=== PATIENT | male | born 1955 | race Caucasian/White ===

== ENCOUNTER 2017-08-28 16:39 | Emergency (ER) | payer BC ==
[~2017-08-28] VITALS: Ht 182.9 cm; Wt 138.1 kg
[2017-08-28 16:55] VITALS: TEMP 37; Ht 182.9 cm; Wt 138.1 kg
[2017-08-28] MEDS ORDERED: XYLOCAINE 1%/SOD BICARB 20 ML VIAL INFIL ONE (17:15)
[2017-08-28] MEDS ORDERED: PROB1TAB16 PO (17:20)
[2017-08-28] MEDS ORDERED: ANTIHYPERTENSIVE PO (17:20)
[2017-08-28] MEDS ORDERED: ASPI81TA28 PO (17:20)
[2017-08-28] MEDS ORDERED: LEVO100T PO (17:20)
[2017-08-28] MEDS ORDERED: PRAS1TAB6 PO (17:20)
[2017-08-28] MEDS ORDERED: MULT-221 PO (17:20)
[2017-08-28] MEDS ORDERED: CHOL1000 PO (17:20)
--- NOTE | 2017-08-28 17:51 | EMERGENCY ROOM VISIT NOTE ---
ED Visit Note First contact with patient: 16:58 CHIEF COMPLAINT: Right fifth toe laceration HISTORY OF PRESENT ILLNESS: Patient is a 61-year-old female who presents the emergency department for evaluation of bleeding from his right fifth toe. He accidentally cut himself while trying to clip his toenails. He is on Effient and a baby aspirin daily status post cardiac stenting. He states that despite applying prolonged pressure and multiple Band-Aid, the area is still bleeding. He rates his discomfort a 1/10. REVIEW OF SYSTEMS: Review of systems as per HPI. All other systems reviewed were negative. At least 6 systems reviewed. PMH: Electronic medical records are reviewed and summarized as above/below. See Problem List. Tetanus is up-to-date. SOCIAL HISTORY: Patient lives at home with his . He is employed. Nonsmoker. PHYSICAL EXAM: Vital Signs: Reviewed Nurse's notes. There is a 1 cm long C- shaped flap laceration on the tip of the left fifth toe. The edges are gaping apart. There is no foreign material in the wound and it looks clean. There is no active bleeding. No deep structures such as tendons or nerves are seen in the base of the wound. EMERGENCY DEPARTMENT COURSE: Using sterile technique, the wound was irrigated copiously with saline and then cleaned with Betadine. Using 1% lidocaine anesthesia, the laceration was repaired with 3, 5-0 nylon sutures. The patient was educated that part of the flap may be too thin to be viable, but removing the entire flap with these a very large defect to granulate over, and given his blood thinning medications, it was felt that it was better to use the flap as an anatomic Band-Aid, rather than remove it. He has a podiatry appointment in 4 days, they can recheck the wound at that time. Suture removal in 10-12 days. The patient expressed understanding of this and was agreeable. Medication reconciliation: I attest that I have personally reviewed the patient' s current medication list. Blood pressure screening: Patient was found to have a slightly elevated blood pressure due to circumstances. I do not believe that the patient requires hypertension monitoring. Problem List Medical Problems: (1) CAD (coronary artery disease) Status: Chronic (2) Hypertension Status: Chronic Surgical Problems: (1) History of heart artery stent Status: Resolved (2) Hx of cholecystectomy Status: Resolved Current/Historical Medications Scheduled Aspirin (Aspirin Ec), 81 MG PO DAILY Cholecalciferol (Vitamin D3), 1 TAB PO DAILY Levothyroxine Sodium (Synthroid), 100 MCG PO DAILY Multiple Vitamins W/ Minerals (Multi For Him 50+), 1 TAB PO DAILY Prasugrel Hcl (Effient), 10 MG PO DAILY Probiotic Product (Probiotic), 1 TAB PO DAILY [Antihypertensive], 1 TAB PO DAILY Allergies Coded Allergies: No Known Allergies (Unverified , 08/28/17) Vital Signs Date Time Temp Pulse Resp B/P (MAP) Pulse Ox O2 Delivery O2 Flow Rate FiO2 08/28/17 17:55 59 16 129/74 95 Room Air 08/28/17 16:55 37.0 63 18 155/82 96 Room Air Medications Administered Medications (Trade) Dose Ordered Sig/Maxim Route Start Time Stop Time Status Last Admin Dose Admin Lidocaine HCl (Buffered Lidocaine 1% Inj) 20 ml ONE ONCE INFIL 08/28/17 17:15 08/28/17 17:16 DC 08/28/17 17:31 20 ML Departure Information Impression Primary Impression: Toe laceration Referrals No Doctor, Assigned (PCP) Patient Instructions [facility] Additional Instructions Keep wound clean and dry. Do not allow any crusting or dried blood to accumulate on sutures. Clean gently with mild soap and water. Use an antibiotic ointment for 3-4 days, then let wound dry. Suture removal in 10-12 days. Return sooner for any signs of infection (increasing redness, swelling, drainage). Ice and elevate for swelling and pain. Ibuprofen 600 mg and Tylenol 1000 mg every 6 hrs for pain.
[2017-08-28 17:55] VITALS: BP 129/74; PULSE 59; O2SAT 95
== END 2017-08-28 18:09 | disposition home or self-care (01) ==
LOC: C.EDB 16:42 → C.EDD 18:09
DX: S91.114A Laceration without foreign body of right lesser toe(s) without damage to nail, initial encounter (principal); W45.8XXA Other foreign body or object entering through skin, initial encounter; Y93.E8 Activity, other personal hygiene; I25.10 Atherosclerotic heart disease of native coronary artery without angina pectoris; I10 Essential (primary) hypertension; Z79.82 Long term (current) use of aspirin; Z79.01 Long term (current) use of anticoagulants; Z95.5 Presence of coronary angioplasty implant and graft